=== PATIENT | female | born 1970 | race African-American/Black ===

== ENCOUNTER 2021-12-03 23:05 | Emergency (ER) | payer MEDICAID ==
[~2021-12-03] VITALS: Ht 175.3 cm; Wt 75.0 kg
[2021-12-04 08:01] VITALS: BP 123/81
== END 2021-12-04 08:57 | disposition home or self-care (01) ==
LOC: ER 23:26
DX: S09.8XXA Other specified injuries of head, initial encounter (principal); W18.39XA Other fall on same level, initial encounter; Y93.89 Activity, other specified; Y92.89 Other specified places as the place of occurrence of the external cause; Y99.8 Other external cause status; D64.9 Anemia, unspecified; K21.9 Gastro-esophageal reflux disease without esophagitis; I10 Essential (primary) hypertension; Z86.73 Personal history of transient ischemic attack (TIA), and cerebral infarction without residual deficits
CPT/HCPCS: 99285

== ENCOUNTER 2023-10-21 13:23 | Inpatient (IN) | payer MEDICARE, MEDICAID ==
[~2023-10-21] VITALS: Ht 160 cm; Wt 52.0 kg
[~2023-10-21 13:23] MED LIST: AM250 MT; BENZ1TAB78 PO; COR12 PO; ESCI5SOL2 PO; FERR325T6 PO; FOLI-43 PO; LEVO100T9 PO; LOSA50TA41 PO; NIFE90TA60 PO; OFLO5DRO4 OT; P20 PO; PANT20TA17 PO; PETR100O3 TOP; QUET25TA36 PO; RIVA10TA PO; SPIR25TA6 PO
[2023-10-21 13:29] VITALS: O2SAT 99
[2023-10-21] MEDS ORDERED: MECLIZINE 25MG TABLET PO ONE (14:00)
[2023-10-21 14:18] LABS: EOSINOPHILS % 3.4 % (0.0-5.0); HEMATOCRIT. 32.4 % (36.0-48.0); HEMOGLOBIN. 10.1 g/dL (12.0-16.0); LYMPHOCYTES % 7.6 % (20.0-50.0); MEAN CORPUSCULAR HGB CONC 31.2 g/dL (31.0-37.0); MEAN CORPUSCULAR VOLUME 80.3 fL (81.0-99.0); MEAN PLATELET VOLUME 7.2 fl (7.4-10.4); MONOCYTES % 11.5 % (2.0-8.0); NEUTROPHILS % 76.5 % (40.0-76.0); PLATELET 338 x1000/uL (130-400); RED BLOOD CELL COUNT 4.03 mill/uL (4.2-5.4); RED CELL DISTRIBUTION WIDTH 15.9 % (11.6-14.6); WHITE BLOOD COUNT 7.2 x1000/uL (4.5-11.0)
[2023-10-21 14:23] LABS: CHLORIDE 107 mEq/L (98-107); POTASSIUM 4.2 mEq/L (3.5-5.1)
[2023-10-21 14:24] LABS: CARBON DIOXIDE 28 mEq/L (21-32); SODIUM 137 mEq/L (136-145)
[2023-10-21 14:25] LABS: CALCIUM 8.3 mg/dL (8.7-10.4)
[2023-10-21 14:29] LABS: CREATININE 1.1 mg/dL (0.6-1.0)
[2023-10-21 14:30] LABS: GLUCOSE 107 mg/dL (70-105); TROPONIN I HIGH SENSITIVITY 11 ng/L (3.0-34); UREA NITROGEN BLOOD 11 mg/dL (9-23)
[2023-10-21 14:31] LABS: ALANINE AMINOTRANSFERASE < 7 IU/L (10-49); ALBUMIN 3.1 g/dL (3.2-4.8); ASPARTATE AMINOTRANSFERASE 11 IU/L (<34)
[2023-10-21 14:32] LABS: BILIRUBIN TOTAL 0.3 mg/dL (0.1-1.0); PROTEIN TOTAL 6.5 g/dL (6.0-8.3)
[2023-10-21 14:42] LABS: BILIRUBIN DIRECT < 0.1 mg/dL (<=3.0)
[2023-10-21] MEDS: MECLIZINE 25MG TABLET PO NR (14:47)
[2023-10-21 14:56] LABS: HCG SCREEN NEGATIVE
[2023-10-21 17:00] LABS: TROPONIN I HIGH SENSITIVITY 10 ng/L (3.0-34)
[2023-10-21 22:44] VITALS: BP 111/82; PULSE 76; RESP 21; TEMP 36.33624; O2SAT 100
[2023-10-22] VITALS (7 sets, daily range): BP systolic 114–150; BP diastolic 72–87; PULSE 65–82; RESP 17–20; TEMP 36.3918–37.503; O2SAT 94–100
[2023-10-22] MEDS ORDERED: GUAIFENESIN 200MG/10ML SUGAR FREE UDC PO PRN (09:30)
[2023-10-22] MEDS ORDERED: ACETAMINOPHEN 325MG TABLET PO PRN (09:30)
[2023-10-22] MEDS ORDERED: IPRATROPIUM/ALBUTEROL 0.5-3(2.5)MG/3ML NEB HHN PRN (09:30)
[2023-10-22] MEDS ORDERED: DOCUSATE SODIUM 100MG CAPSULE PO PRN (09:30)
[2023-10-22] MEDS ORDERED: CLONIDINE 0.1MG TABLET PO PRN (09:30)
[2023-10-22] MEDS ORDERED: ONDANSETRON HCL 4MG/2ML INJ IV PRN (09:30)
[2023-10-22] MEDS ORDERED: AMLO5TAB88 PO (10:46)
[2023-10-22] MEDS ORDERED: FAMO20TA8 PO (10:46)
[2023-10-22 21:58] LABS: IRON 19 ug/dL (50-170); TRIGLYCERIDE 84 mg/dL (0-150)
[2023-10-22 21:59] LABS: LDL CHOLESTEROL 79 mg/dL (5-100)
[2023-10-22 22:00] LABS: CHOLESTEROL 136 mg/dL (<200); CREATINE KINASE 32 IU/L (34-145); HDL CHOLESTEROL 45 mg/dL (>65)
[2023-10-22 22:01] LABS: TOTAL IRON BINDING CAPACITY 142 ug/dl (250-425)
[2023-10-22 22:03] LABS: T4 FREE 0.35 ng/dL (0.89-1.76); THYROID STIMULATING HORMONE 100.41 uIU/mL (0.55-4.78)
[2023-10-22 22:05] LABS: FERRITIN 20 ng/mL (10-291)
[2023-10-22 22:06] LABS: FOLIC ACID (FOLATE) SERUM 10.46 ng/mL (>5.38); VITAMIN B12 SERUM 1199 pg/mL (211-911)
[2023-10-22] MEDS: FAMOTIDINE 20MG TABLET PO SCH (22:34)
[2023-10-23] VITALS: BP 120/90; PULSE 79; RESP 20; TEMP 36.3918; O2SAT 98
[2023-10-23 00:15] LABS: CREATINE KINASE 32 IU/L (34-145)
[2023-10-23 04:00] VITALS: BP 127/86; PULSE 78; RESP 19; TEMP 37.11408; O2SAT 98
[2023-10-23 07:06] LABS: CARBON DIOXIDE 27 mEq/L (21-32); CHLORIDE 107 mEq/L (98-107); SODIUM 137 mEq/L (136-145)
[2023-10-23 07:08] LABS: CALCIUM 8.6 mg/dL (8.7-10.4)
[2023-10-23 07:11] LABS: CREATININE 0.9 mg/dL (0.6-1.0)
[2023-10-23 07:12] LABS: GLUCOSE 92 mg/dL (70-105)
[2023-10-23 07:13] LABS: UREA NITROGEN BLOOD 8 mg/dL (9-23)
[2023-10-23 07:14] LABS: BASOPHILS % 0.5 % (0.0-2.0); DIFFERENTIAL COMMENT 0; EOSINOPHILS % 3.4 % (0.0-5.0); HEMATOCRIT. 31.8 % (36.0-48.0); HEMOGLOBIN. 9.8 g/dL (12.0-16.0); LYMPHOCYTES % 8.4 % (20.0-50.0); MEAN CORPUSCULAR HEMOGLOBIN 24.8 pg (28.0-32.0); MEAN CORPUSCULAR HGB CONC 30.9 g/dL (31.0-37.0); MEAN CORPUSCULAR VOLUME 80.2 fL (81.0-99.0); MEAN PLATELET VOLUME 7.7 fl (7.4-10.4); MONOCYTES % 9.8 % (2.0-8.0); NEUTROPHILS % 77.9 % (40.0-76.0); PLATELET 322 x1000/uL (130-400); RED BLOOD CELL COUNT 3.96 mill/uL (4.2-5.4); RED CELL DISTRIBUTION WIDTH 15.6 % (11.6-14.6)
[2023-10-23 08:00] VITALS: BP 132/94; PULSE 71; RESP 20; TEMP 36.33624; O2SAT 96
[2023-10-23 12:00] VITALS: BP 128/89; PULSE 70; RESP 20; TEMP 36.22512; O2SAT 96
[2023-10-23] MEDS: FERROUS SULFATE 325MG TABLET PO SCH (12:53)
[2023-10-23 16:00] VITALS: BP 114/78; PULSE 94; RESP 18; TEMP 36.6696; O2SAT 99
[2023-10-23] MEDS: NYSTATIN POWDER 15GM TOP SCH (17:44)
[2023-10-23 20:00] VITALS: BP 104/72; PULSE 79; RESP 19; TEMP 36.33624; O2SAT 100
[2023-10-24] VITALS: BP 112/80; PULSE 100; RESP 18; TEMP 37.2252; O2SAT 97
[2023-10-24 04:00] VITALS: BP 111/79; PULSE 100; RESP 18; TEMP 37.2252; O2SAT 97
[2023-10-24 06:22] LABS: HEMOGLOBIN 9.6 g/dL (12.0-16.0); MEAN CORPUSCULAR HEMOGLOBIN 24.9 pg (28.0-32.0); MEAN CORPUSCULAR HGB CONC 31.1 g/dL (31.0-37.0); PLATELET 328 x1000/uL (130-400); RED BLOOD CELL COUNT 3.87 mill/uL (4.2-5.4); RED CELL DISTRIBUTION WIDTH 15.3 % (11.6-14.6); WHITE BLOOD COUNT 6.7 x1000/uL (4.5-11.0)
[2023-10-24 06:27] LABS: CARBON DIOXIDE 27 mEq/L (21-32); CHLORIDE 105 mEq/L (98-107); POTASSIUM 3.9 mEq/L (3.5-5.1); SODIUM 138 mEq/L (136-145)
[2023-10-24 06:28] LABS: CALCIUM 8.1 mg/dL (8.7-10.4)
[2023-10-24 06:32] LABS: CREATININE 0.9 mg/dL (0.6-1.0)
[2023-10-24 06:33] LABS: GLUCOSE 65 mg/dL (70-105); UREA NITROGEN BLOOD 11 mg/dL (9-23)
[2023-10-24 08:00] VITALS: BP 120/83; PULSE 66; PULSE 81; RESP 18; TEMP 36.114; TEMP 36.50292; O2SAT 100
[2023-10-24 12:00] VITALS: BP 112/70; PULSE 57; PULSE 93; RESP 18; TEMP 36.22512; TEMP 36.61404; O2SAT 100
[2023-10-24 16:00] VITALS: BP 107/78; PULSE 60; PULSE 71; RESP 18; TEMP 36.114; O2SAT 100
[2023-10-24] MEDS: PANTOT AC/MIN OIL/PET HY-PHL OINT (AQUAPHOR) TOP SCH (18:00)
[2023-10-24] MEDS: LEVOTHYROXINE SODIUM 100MCG TABLET PO SCH (18:04)
[2023-10-24 20:00] VITALS: BP 127/92; PULSE 74; RESP 20; TEMP 36.61404; O2SAT 100
[2023-10-24 21:17] LABS: HEMATOCRIT 34.9 % (36.0-48.0); MEAN CORPUSCULAR HEMOGLOBIN 25.5 pg (28.0-32.0); MEAN CORPUSCULAR HGB CONC 31.5 g/dL (31.0-37.0); MEAN CORPUSCULAR VOLUME 80.9 fL (81.0-99.0); PLATELET 286 x1000/uL (130-400); RED BLOOD CELL COUNT 4.31 mill/uL (4.2-5.4); RED CELL DISTRIBUTION WIDTH 15.3 % (11.6-14.6); WHITE BLOOD COUNT 8.5 x1000/uL (4.5-11.0)
[2023-10-24 21:23] LABS: CHLORIDE 104 mEq/L (98-107); POTASSIUM 4.4 mEq/L (3.5-5.1); SODIUM 137 mEq/L (136-145)
[2023-10-24 21:24] LABS: CARBON DIOXIDE 29 mEq/L (21-32)
[2023-10-24 21:25] LABS: CALCIUM 8.5 mg/dL (8.7-10.4)
[2023-10-24 21:30] LABS: GLUCOSE 82 mg/dL (70-105); UREA NITROGEN BLOOD 10 mg/dL (9-23)
== END 2023-10-24 22:05 | DRG 149 ==
LOC: ER 13:23 → 5WST 14:40 → EDBEDREQ 14:42 → 7EST 21:57
PROVIDERS: ADMIT Internal Medicine; ATTEND Internal Medicine
DX: R42 Dizziness and giddiness (principal); E43 Unspecified severe protein-calorie malnutrition; I69.351 Hemiplegia and hemiparesis following cerebral infarction affecting right dominant side; F20.9 Schizophrenia, unspecified; G20.C Parkinsonism, unspecified; I10 Essential (primary) hypertension; E83.51 Hypocalcemia; E03.9 Hypothyroidism, unspecified; D64.9 Anemia, unspecified; L30.4 Erythema intertrigo; L20.89 Other atopic dermatitis; K21.9 Gastro-esophageal reflux disease without esophagitis; M21.961 Unspecified acquired deformity of right lower leg; Z74.01 Bed confinement status; Z91.81 History of falling; Z68.20 Body mass index [BMI] 20.0-20.9, adult
CPT/HCPCS: 36415; 71045; 80048; 80061; 80076; 82550; 82607; 82728; 82746; 83540; 83550; 84439; 84443; 84484; 84703; 85025; 85027; 93880; 93970; 97162; 97166; 97530; 99285; J8597